=== PATIENT | male | born 1995 | race Caucasian/White ===

== ENCOUNTER 2018-11-30 06:01 | Day surgery (SDC) | payer OTHER ==
[~2018-11-30] VITALS: Ht 172.7 cm; Wt 74.8 kg
--- NOTE | 2018-11-30 06:29 | NUR ---
SE RECIBE PACIENTE QUE REFIERE FISTULA EN EL ANO DESDE AUGZO. PACIENTE VERBALIZA QUE DRA. HUNTER BARRAGAN LO ATENDERA.
--- NOTE | 2018-11-30 08:16 | NUR ---
SE ORIENTA PTE SOBRE EL TRATAMIENTO ORDENADO POR EL DR MERINO PTE ALERTA Y CONCIENTE POR 3 RN VINSON REALIZA MUESTRAS DE LABORATORIO Y ADMINISTRAN MEDICAMENTO BRIANA ORDENADO PTE SE MANTIENE EN OBSERVACION Y BAJO TRATAMIENTO
--- NOTE | 2018-11-30 11:30 | NUR ---
------ADMISION MR AMOS ORIENTA A PACIENTE SOBRE TRATAMIENTO, ORDENES MEDICAS Y PROCESO DE ADMISION. ADMINISTRA MEDICAMENTOS ORDENADOS BAJO MEDIDAS ASEPTIAS. SHAYE VESTIMENTA PARA IR A GUANAKO DE OPERACIONES.
[2018-11-30] MEDS ORDERED: PERCOCET 5-3251 EACH PO (16:02)
[2018-11-30] MEDS ORDERED: BACTRIM DS TAB1 EACH PO (16:02)
[2018-11-30] MEDS ORDERED: HIBICLENS118 ML TOP (16:03)
[2018-11-30] MEDS ORDERED: CENTANY30 GM TOP (16:04)
== END 2018-11-30 13:00 | disposition home or self-care (01) ==
LOC: ER 06:01 → CIR.AMB 07:00 → O/R 09:44 → SEC-K 09:44 → ER 09:44 → CIR.AMB 13:00 → EDSTATUS 15:00 → SEC-K 15:02 → O/R 15:02
DX: K60.3 Anal fistula (principal); K60.4 Rectal fistula